=== PATIENT | male | born 1965 | race Caucasian/White ===

== ENCOUNTER 2019-01-31 21:04 | Emergency (ER) | payer OTHER ==
[2019-01-31 21:43] LABS: Absolute Lymphocytes (CBC) 3.8 K/uL (0.7-4.9); Basophils % 1.1 % (0-1.3); Hematocrit 45.2 % (39.6-49.0); Lymphocytes % 33.1 % (15.3-44.8); MPV 7.1 fL (7.6-11.3); RBC Red Blood Cell Count 5.54 M/uL (4.33-5.43)
--- NOTE | 2019-01-31 21:51 | ER ---
Nurse's Notes [facility] Name: Bhupinder Garcia Age: 53 yrs Sex: Male : 1965 Arrival Date: 01/31/2019 Time: 21:07 Bed 15 Private MD: Diagnosis: Suicidal ideations Presentation: 01/31 21:05 Presenting complaint: EMS states: PD at the scene called us out with a complaint rr5 patient wants kill himself inside the house,text his son and daughter saying "goodbye and I Love you". He had an issue with his yesterday found out he has a communication with other women. 21:05 Transition of care: patient was not received from another setting of care. Onset of rr5 symptoms was January 31, 2019. Risk Assessment: Do you want to hurt yourself or someone else? Patient reports desire/thoughts of hurting themselves or someone else. Provider notified. Other: as verbalized by the patient before he want to kill himself using a gun with a half can of beer on the side. but right now I am good. Initial Sepsis Screen: Does the patient meet any 2 criteria? No. Patient's initial sepsis screen is negative. Does the patient have a suspected source of infection? No. Patient's initial sepsis screen is negative. Care prior to arrival: None. 21:05 Method Of Arrival: EMS: [facility] rr5 21:05 Acuity: LIZZY 2 rr5 Historical: - Allergies: 21:10 No Known Allergies; rr5 - Home Meds: 21:10 Prevacid Oral [Active]; Valium Oral [Active]; flexeril [Active]; cholesterol medication rr5 [Active]; BP medication [Active]; - PMHx: 21:19 GERD; Degenerative disc disease; Hyperlipidemia; Hypertension; rr5 - PSHx: 21:19 Cholecystectomy; Appendectomy; Vasectomy; rr5 - Immunization history:: Adult Immunizations up to date. - Social history:: Smoking status: Patient/guardian denies using tobacco, Patient uses alcohol, Patient/guardian denies using street drugs. - Ebola Screening: : Patient negative for fever greater than or equal to 101.5 degrees Fahrenheit, and additional compatible Ebola Virus Disease symptoms Patient denies exposure to infectious person Patient denies travel to an Ebola-affected area in the 21 days before illness onset. Screenin:19 Abuse screen: Denies threats or abuse. Denies injuries from another. Nutritional rr5 screening: No deficits noted. Tuberculosis screening: No symptoms or risk factors identified. Fall Risk None identified. Total Arboleda Fall Scale indicates No Risk (0-24 pts). Assessment: 21:05 General: Appears in no apparent distress. comfortable, Behavior is calm, cooperative, rr5 Reports wants to kill himself before. sitter at bedside. 21:05 Pain: Denies pain. Neuro: Level of Consciousness is awake, alert, obeys commands, rr5 Oriented to person, place, time, situation. Cardiovascular: Capillary refill < 3 seconds Patient's skin is warm and dry. Respiratory: Airway is patent Respiratory effort is even, unlabored, Respiratory pattern is regular, symmetrical. GI: No signs and/or symptoms were reported involving the gastrointestinal system. : No signs and/or symptoms were reported regarding the genitourinary system. EENT: No signs and/or symptoms were reported regarding the EENT system. Derm: Skin is intact, is healthy with good turgor, Skin temperature is warm. Musculoskeletal: Circulation, motion, and sensation intact. Capillary refill < 3 seconds. 22:00 Reassessment: Patient appears in no apparent distress at this time. Patient and/or rr5 family updated on plan of care and expected duration. Pain level reassessed. Patient is alert, oriented x 3, equal unlabored respirations, skin warm/dry/pink. [facility] staff at bedside examining the patient. 22:45 Reassessment: surrendered to security staff the valuables. rr5 23:31 Reassessment: Patient appears in no apparent distress at this time. Patient and/or rr5 family updated on plan of care and expected duration. Pain level reassessed. Patient is alert, oriented x 3, equal unlabored respirations, skin warm/dry/pink. awaiting for urine sample. 02/01 01:05 Reassessment: Patient appears in no apparent distress at this time. patient is resting rr5 eyes closed breathing spontaneously at room air. Patient denies pain at this time. 03:21 Reassessment: call made to [facility] staff said to call back after 30 minutes. rr5 03:55 Reassessment: Renetta staff nurse from [facility] called and accepted the case. rr5 04:09 Reassessment: endorsed to EMS AO x4 calm cooperative no complaints made.breathing rr5 spontaneously at room air. Psych: 01/31 21:05 Commitment: Patient will be a voluntary commitment. rr5 21:05 Subjective: Patient's mood is sad. Objective: Patient is cooperative, Speech is normal, rr5 Affect is appropriate, Patient has mutilated themselves by own gun. Interventions: Removed personal items and placed in bag. Patient placed in hospital gown. Searched person for dangerous items. Urine collected and sent for urine drug test. Belonging list filled out. Suicide Risk Assessment: Sad Person Scale: Sex of patient: Male: Score 1 point. Age of patient: Score 0 point if patient falls outside of specified age parameters. Depression: Score 1 point if signs of depression are present. Previous Attempt: Score 0 point if patient has not previously attempted suicide. Substance Abuse: Score 0 point if patient does not abuse alcohol or drugs. Rational Thinking: Score 0 point if patient has rational thinking. Social Support: Score 0 if social support is present/available. Organized Plan: Score 0 if patient did not have an organized plan in place. Relationship: Score 0 point if patient has a spouse or domestic partner. Chronic Sickness: Score 0 point if patient does not have a chronic illness, debilitating, or severe disorder. TOTAL POINTS: If total points are 0-2, proposed clinical action is to send home with follow-up. Safety Checks: Personal items have been removed. Pt has been placed in a hallway bed/chair. Door is open. Visitors are present. Patient uses benzodiazepines prescribe for the medical history of GERD.. Vital Signs: 21:15 BP 127 / 95; Pulse 71; Resp 19; Temp 98.1; Pulse Ox 99% ; Weight 108.86 kg; Height 5 rr5 ft. 10 in. (177.80 cm); Pain 0/10; 23:59 BP 123 / 76; Pulse 62; Resp 16; Temp 98.4; Pulse Ox 98% ; eo 02/01 03:17 BP 101 / 65; Pulse 59; Resp 16; Temp 98.1; Pulse Ox 98% ; rr5 01/31 21:15 Body Mass Index 34.44 (108.86 kg, 177.80 cm) rr5 ED Course: 01/31 21:07 Patient arrived in ED. rr5 21:09 Charli Travis MD is Attending Physician. rn 21:10 Patient has correct armband on for positive identification. Placed in gown. Bed in low rr5 position. 21:15 Triage completed. rr5 21:15 Safety checks: Items removed: yes. Door open/sign placed on door: yes. Family/friend eo present: no. Sitter present: Yes. 21:18 Dandre Jolly, RN is Primary Nurse. rr5 21:22 Arm band placed on left wrist. rr5 21:26 Inserted saline lock: 20 gauge in right forearm, using aseptic technique. Blood mt collected. 21:30 Safety checks: Items removed: yes. Door open/sign placed on door: yes. Family/friend eo present: no. Sitter present: Yes. 21:45 Safety checks: Items removed: yes. Door open/sign placed on door: yes. Family/friend eo present: yes. Sitter present: Yes. 21:49 EKG done, by ED staff, reviewed by Charli Travis MD. mt 22:00 Safety checks: Items removed: yes. Door open/sign placed on door: yes. Family/friend eo present: yes. Sitter present: Yes. 22:00 Warm blanket given. Head of bed elevated. rr5 22:15 Safety checks: Items removed: yes. Door open/sign placed on door: yes. Family/friend eo present: yes. Sitter present: Yes. 22:30 Safety checks: Items removed: yes. Door open/sign placed on door: yes. Family/friend eo present: yes. Sitter present: Yes. 22:45 Safety checks: Items removed: yes. Door open/sign placed on door: yes. Family/friend eo present: no. Sitter present: Yes. 23:00 Safety checks: Items removed: yes. Door open/sign placed on door: yes. Family/friend eo present: no. Sitter present: Yes. 23:15 Safety checks: Items removed: yes. Door open/sign placed on door: yes. Family/friend eo present: yes. Sitter present: Yes. 23:30 Safety checks: Items removed: yes. Door open/sign placed on door: yes. Family/friend eo present: no. Sitter present: Yes. 23:45 Safety checks: Items removed: yes. Door open/sign placed on door: yes. Family/friend eo present: no. Sitter present: Yes. 02/01 00:00 Safety checks: Items removed: yes. Door open/sign placed on door: yes. Family/friend eo present: yes. Sitter present: Yes. 00:15 Safety checks: Items removed: yes. Door open/sign placed on door: yes. Family/friend mt present: no. Sitter present: Yes. 00:30 Safety checks: Items removed: yes. Door open/sign placed on door: yes. Family/friend mt present: no. Sitter present: Yes. 00:45 Safety checks: Items removed: yes. Door open/sign placed on door: yes. Family/friend mt present: no. Sitter present: Yes. 01:00 Safety checks: Items removed: yes. Door open/sign placed on door: yes. Family/friend mt present: no. Sitter present: Yes. 01:06 No provider procedures requiring assistance completed. rr5 01:15 Safety checks: Items removed: yes. Door open/sign placed on door: yes. Family/friend mt present: no. Sitter present: Yes. 01:30 Safety checks: Items removed: yes. Door open/sign placed on door: yes. Family/friend mt present: no. Sitter present: Yes. 01:45 Safety checks: Items removed: yes. Door open/sign placed on door: yes. Family/friend mt present: no. Sitter present: Yes. 02:00 Safety checks: Items removed: yes. Door open/sign placed on door: yes. Family/friend mt present: no. Sitter present: Yes. 02:15 Safety checks: Items removed: yes. Door open/sign placed on door: yes. Family/friend mt present: no. Sitter present: Yes. 02:30 Safety checks: Items removed: yes. Door open/sign placed on door: yes. Family/friend mt present: no. Sitter present: Yes. 02:45 Safety checks: Items removed: yes. Door open/sign placed on door: yes. Family/friend mt present: no. Sitter present: Yes. 03:00 Safety checks: Items removed: yes. Door open/sign placed on door: yes. Family/friend mt present: no. Sitter present: Yes. 04:10 IV discontinued, intact, bleeding controlled, No redness/swelling at site. Pressure rr5 dressing applied. Administered Medications: No medications were administered Intake: 01/31 22:50 PO: 480ml (Soft Drink); Total: 480ml. rr5 Output: 23:50 Urine: 750ml (Voided); Total: 750ml. rr5 Outcome: 21:50 ER care complete, transfer ordered by MD. baltazar 02/01 04:10 Transferred by ground EMS to [facility], Transfer form completed. rr5 Condition: stable Instructed on the need for transfer. 04:17 Patient left the ED. rr5 Signatures: Charli Travis MD MD rn Thompson, Maverick Gomez mt, Raymond, RN RN rr5 Corrections: (The following items were deleted from the chart) 01/31 21:21 21:05 Risk Assessment: Do you want to hurt yourself or someone else? Patient reports rr5 desire/thoughts of hurting themselves or someone else. Provider notified. Other: as verbalized by the patient he want to kill himself using a gun with a half can of beer on the side. rr5 02/01 00:20 01/31 23:59 BP 123 / 76; Pulse 62bpm; Resp 6bpm; Pulse Ox 98%; Temp 98.4F; eo eo
--- NOTE | 2019-01-31 21:52 | EDPHYS ---
Physician Documentation [facility] Name: Bhupinder Garcia Age: 53 yrs Sex: Male : 1965 Arrival Date: 01/31/2019 Time: 21:07 Bed 15 Private MD: ED Physician Charli Travis HPI: 01/31 21:27 This 53 yrs old Male presents to ER via EMS with complaints of Suicidal rn Ideation. 21:27 The patient presents to the emergency department with suicide ideation. Onset: The rn symptoms/episode began/occurred today. Severity of symptoms: At their worst the symptoms were moderate in the emergency department the symptoms are unchanged. The patient has not experienced similar symptoms in the past. Reports found out about him messaging women online, felt ashamed and wants to kill himself, texted children and friends, told them he was going to hell, and had gun laying in front of him. States if his kids didn't call police he would have shot himself. Kids now have gun. Cannot guarantee if he goes home he wont harm himself.. Historical: - Allergies: 21:10 No Known Allergies; rr5 - Home Meds: 21:10 Prevacid Oral [Active]; Valium Oral [Active]; flexeril [Active]; cholesterol medication rr5 [Active]; BP medication [Active]; - PMHx: 21:19 GERD; Degenerative disc disease; Hyperlipidemia; Hypertension; rr5 - PSHx: 21:19 Cholecystectomy; Appendectomy; Vasectomy; rr5 - Immunization history:: Adult Immunizations up to date. - Social history:: Smoking status: Patient/guardian denies using tobacco, Patient uses alcohol, Patient/guardian denies using street drugs. - Ebola Screening: : Patient negative for fever greater than or equal to 101.5 degrees Fahrenheit, and additional compatible Ebola Virus Disease symptoms Patient denies exposure to infectious person Patient denies travel to an Ebola-affected area in the 21 days before illness onset. ROS: 21:27 Constitutional: Negative for fever, chills, and weight loss, Eyes: Negative for injury, rn pain, redness, and discharge, Neck: Negative for injury, pain, and swelling, Cardiovascular: Negative for chest pain, palpitations, and edema, Respiratory: Negative for shortness of breath, cough, wheezing, and pleuritic chest pain, Abdomen/GI: Negative for abdominal pain, nausea, vomiting, diarrhea, and constipation, MS/Extremity: Negative for injury and deformity, Skin: Negative for injury, rash, and discoloration, Neuro: Negative for headache, weakness, numbness, tingling, and seizure. Exam: 21:27 Constitutional: This is a well developed, well nourished patient who is awake, alert, rn and in no acute distress. Head/Face: Normocephalic, atraumatic. Eyes: Pupils equal round and reactive to light, extra-ocular motions intact. Lids and lashes normal. Conjunctiva and sclera are non-icteric and not injected. Cornea within normal limits. Periorbital areas with no swelling, redness, or edema. Cardiovascular: Regular rate and rhythm with a normal S1 and S2. No gallops, murmurs, or rubs. Normal PMI, no JVD. No pulse deficits. Respiratory: Lungs have equal breath sounds bilaterally, clear to auscultation and percussion. No rales, rhonchi or wheezes noted. No increased work of breathing, no retractions or nasal flaring. Abdomen/GI: Soft, non-tender, with normal bowel sounds. No distension or tympany. No guarding or rebound. No evidence of tenderness throughout. MS/ Extremity: Pulses equal, no cyanosis. Neurovascular intact. Full, normal range of motion. Equal circumference. Neuro: Awake and alert, GCS 15, oriented to person, place, time, and situation. Cranial nerves II-XII grossly intact. Motor strength 5/5 in all extremities. Sensory grossly intact. Cerebellar exam normal. Normal gait. 22:06 ECG was reviewed by the Attending Physician. rn Vital Signs: 21:15 BP 127 / 95; Pulse 71; Resp 19; Temp 98.1; Pulse Ox 99% ; Weight 108.86 kg; Height 5 rr5 ft. 10 in. (177.80 cm); Pain 0/10; 23:59 BP 123 / 76; Pulse 62; Resp 16; Temp 98.4; Pulse Ox 98% ; eo 02/01 03:17 BP 101 / 65; Pulse 59; Resp 16; Temp 98.1; Pulse Ox 98% ; rr5 01/31 21:15 Body Mass Index 34.44 (108.86 kg, 177.80 cm) rr5 MDM: 01/31 21:09 Patient medically screened. rn 21:48 Differential diagnosis: depression, SI. Data reviewed: vital signs, nurses notes, laborer car barn test result(s), and as a result, I will admit patient. Counseling: I had a detailed discussion with the patient and/or guardian regarding: the historical points, exam findings, and any diagnostic results supporting the discharge/admit diagnosis, lab results, the need to transfer to another facility, [facility] does not immediately have the required specialist. ED course: Will transfer patient, evaluated by [facility], also recommend inpatient treatment, patient voluntary.. 01/31 21:15 Order name: Acetaminophen 01/31 21:15 Order name: Basic Metabolic Panel 01/31 21:15 Order name: CBC with Diff 01/31 21:15 Order name: ETOH Level 01/31 21:15 Order name: Hepatic Function; Complete Time: 01/31 21:15 Order name: PT-INR; Complete Time: 01/31 21:15 Order name: Ptt, Activated; Complete Time: 01/31 21:15 Order name: Salicylate; Complete Time: 01/31 21:15 Order name: Urine Drug Screen; Complete Time: 01/31 21:17 Order name: Acetaminophen Level; Complete Time: [facility] 01/31 21:17 Order name: Basic Metabolic Panel; Complete Time: [facility] 01/31 21:17 Order name: CBC with Automated Diff; Complete Time: [facility] 01/31 21:17 Order name: Alcohol Serum/Plasma; Complete Time: [facility] 01/31 23:46 Order name: Urine Dipstick--Ancillary (enter results); Complete Time: : [facility] 01/31 21:15 Order name: EKG; Complete Time: 21: 01/31 21:15 Order name: EKG - Nurse/Tech; Complete Time: 01/31 21:15 Order name: IV Saline Lock; Complete Time: : 01/31 21:15 Order name: Labs collected and sent; Complete Time: 01/31 21:15 Order name: Urine Dipstick-Ancillary (obtain specimen); Complete Time: 23:46 rn EC:06 Rate is 62 beats/min. Rhythm is regular. QRS [place] is Normal. WA interval is normal. QRS rn interval is normal. QT interval is normal. No Q waves. T waves are Normal. No ST changes noted. Clinical impression: NSR w/ Non-specific ST/T Changes. Interpreted by me. Reviewed by me. Administered Medications: No medications were administered Disposition: 01/31/19 21:50 Transfer ordered to Psych Facility. Diagnosis is Suicidal ideations. - Reason for transfer: Higher level of care. - Accepting physician is . - Condition is Stable. - Problem is new. - Symptoms are unchanged. Signatures: Dispatcher [employer] EDMS Charli Travis MD MD rn Roque, Raymond, RN RN rr5 Corrections: (The following items were deleted from the chart) 02/01 04:17 01/31 21:50 01/31/2019 21:50 Transfer ordered to Psych Facility. Diagnosis is Suicidal rr5 ideations. Reason for transfer: Higher level of care. Accepting physician is . Condition is Stable. Problem is new. Symptoms are unchanged. rn
[2019-01-31 21:53] LABS: Protime INR 1.05
[2019-01-31 21:55] LABS: ALT/SGPT 46 U/L (12-78); AST/SGOT 32 U/L (15-37); Albumin 4.3 g/dL (3.4-5.0); Alkaline Phosphatase 140 U/L (45-117); BUN Blood Urea Nitrogen 8 mg/dL (7-18); Bicarbonate 25 mmol/L (21-32); Bilirubin Direct 0.2 mg/dL (0-0.2); Bilirubin Total 0.7 mg/dL (0.2-1.0); Glucose Level 91 mg/dL (74-106); Potassium 3.9 mmol/L (3.5-5.1); Protein, Total 8.3 g/dL (6.4-8.2); Sodium Level 139 mmol/L (136-145)
[2019-02-01 00:08] LABS: Urine Blood NEGATIVE (NEG); Urine Glucose NEGATIVE (NEG)
[2019-02-01 00:09] LABS: Urine Protein NEGATIVE (NEG); Urine pH 6.5 (5.0-7.0)
[2019-02-01 00:14] LABS: Barbiturates NEGATIVE (NEGATIVE); Benzodiazepines POSITIVE (NEGATIVE); Cocaine NEGATIVE (NEGATIVE); METHAMPHETAM NEGATIVE (NEGATIVE); Methadone NEGATIVE (NEGATIVE); Opiates NEGATIVE (NEGATIVE); Phencyclidine NEGATIVE (NEGATIVE); THC Cannibis NEGATIVE (NEGATIVE)
[2019-02-01 04:36] VITALS: O2SAT 98
[2019-02-01 04:37] VITALS: BP 101/65; TEMP 98.1
--- NOTE | 2019-02-01 09:22 | EKG ---
Test Date: 2019-01-31 Test Time: 21:46:39 Hand Wood Sander: WOO MEASUREMENT RESULTS: Intervals: Rate: 62 AL: 210 QRSD: 102 QT: 410 QTc: 416 [place]: P: 64 AL: 210 QRS: 66 T: 65 INTERPRETIVE STATEMENTS: Sinus rhythm with 1st degree AV block Incomplete right bundle branch block Septal infarct, age undetermined Abnormal ECG No previous ECG available for comparison Electronically Signed On 02-01-19 09:21:40 CDT by Chaitanya Patterson
== END 2019-02-01 04:17 ==
LOC: ER 21:04
DX: R45.851 Suicidal ideations (principal); I10 Essential (primary) hypertension; E78.5 Hyperlipidemia, unspecified
CPT/HCPCS: 36415; 80048; 80076; 80307; 80320; 80329; 81003; 85025; 85610; 85730; 93005; 99285

== ENCOUNTER 2019-08-02 09:05 | Emergency (ER) | payer OTHER ==
[~2019-08-02 09:05] MED LIST: KETOROLAC 30 MG/ML INJ ONE
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
[2019-08-02 09:43] VITALS: BP 137/79; TEMP 97.5; O2SAT 99
== END 2019-08-02 09:37 | disposition home or self-care (01) ==
LOC: ER 09:05
DX: M54.31 Sciatica, right side (principal); W19.XXXA Unspecified fall, initial encounter; Y93.89 Activity, other specified; Y92.89 Other specified places as the place of occurrence of the external cause; Y99.8 Other external cause status; I10 Essential (primary) hypertension
CPT/HCPCS: 96372; 99283